=== PATIENT | female | born 1945 | race Caucasian/White ===

== ENCOUNTER → 2017-10-10 | Outpatient (CLI) | payer MEDICARE ==
[~2017-10-10] MED LIST: APIX2.5T PO; CLON0.5T12 PO; CLON1TAB5 PO; DOCU240C25 PO; ESCI20TA36 PO; PROG100C6 PO; PROM12.510 PO; THYR90TA PO; TRAM50TA4 PO; TRIA1TAB3 PO; TYL3 PO
== END | disposition home or self-care (01) ==
LOC: RAH 08:40
PROVIDERS: ATTEND Nurse Practitioner Family
DX: M48.061 Spinal stenosis, lumbar region without neurogenic claudication (principal); N95.1 Menopausal and female climacteric states; E87.6 Hypokalemia; E03.4 Atrophy of thyroid (acquired); E78.2 Mixed hyperlipidemia; I95.89 Other hypotension
CPT/HCPCS: 72148

== ENCOUNTER → 2017-12-25 | Outpatient (CLI) | payer MEDICARE | END | disposition home or self-care (01) | LOC: OIH 11:03 | PROVIDERS: ATTEND Internal Medicine | DX: E78.5 Hyperlipidemia, unspecified (principal); I10 Essential (primary) hypertension; E03.9 Hypothyroidism, unspecified; Z90.49 Acquired absence of other specified parts of digestive tract; K21.9 Gastro-esophageal reflux disease without esophagitis; Z90.710 Acquired absence of both cervix and uterus | CPT/HCPCS: 71046 ==

== ENCOUNTER → 2018-03-30 | Outpatient (CLI) | payer MEDICARE ==
[~2018-03-30] MED LIST changes: +CLON1TAB12 PO; -CLON1TAB5 PO
== END | disposition home or self-care (01) ==
LOC: OIH 09:59
PROVIDERS: ATTEND Internal Medicine
DX: I10 Essential (primary) hypertension (principal)
CPT/HCPCS: 71046

== ENCOUNTER 2018-10-04 12:25 | Inpatient (IN) | payer MEDICARE | END 2018-10-06 20:44 | disposition home or self-care (01) | LOC: EDH 12:25 → EDHIP 17:43 → 3CH 21:31 | DX: K56.609 Unspecified intestinal obstruction, unspecified as to partial versus complete obstruction (principal); I10 Essential (primary) hypertension; E78.5 Hyperlipidemia, unspecified; F41.9 Anxiety disorder, unspecified; F32.9 Major depressive disorder, single episode, unspecified ==

== ENCOUNTER → 2019-01-14 | Outpatient (CLI) | payer MEDICARE ==
[~2019-01-14] MED LIST changes: -APIX2.5T PO; -CLON1TAB12 PO; -DOCU240C25 PO; +NAPR-1023 PO; +PROG100C11 PO; -PROG100C6 PO; -PROM12.510 PO; +PROM12.513 PO; +PRUNELAX PO; +SIMV10TA6 PO; +THYR120T2 PO; -THYR90TA PO; -TYL3 PO
== END | disposition home or self-care (01) ==
LOC: SLP 20:18
PROVIDERS: ATTEND Internal Medicine
DX: G47.33 Obstructive sleep apnea (adult) (pediatric) (principal)
CPT/HCPCS: 95810

== ENCOUNTER → 2019-01-16 | Outpatient (CLI) | payer MEDICARE | END | disposition home or self-care (01) | LOC: SLP 15:27 | PROVIDERS: ATTEND Internal Medicine | DX: G47.33 Obstructive sleep apnea (adult) (pediatric) (principal) | CPT/HCPCS: 95811 ==

== ENCOUNTER 2021-03-04 08:55 | Emergency (ER) | payer MEDICARE ==
[~2021-03-04] VITALS: Ht 167.6 cm; Wt 76.7 kg
[~2021-03-04 08:55] MED LIST changes: -CLON0.5T12 PO; +CLON0.5T4 PO; -ESCI20TA36 PO; +ESCI20TA38 PO; -SIMV10TA6 PO; +SIMV10TA97 PO
[2021-03-04] MEDS ORDERED: ONDANSETRON 4MG INJ IVP ONE (09:00)
[2021-03-04] MEDS ORDERED: PANTOPRAZOLE 40 MG/VIAL IVP ONE (09:00)
[2021-03-04] MEDS ORDERED: ACETAMINOPHEN 325 MG TAB PO ONE (09:00)
[2021-03-04] MEDS ORDERED: DICYCLOMINE 20MG (10MG/ML) AMP IM ONE (09:00)
[2021-03-04] MEDS ORDERED: LACTATED RINGERS 1000ML 1,000 ML IV ONE (09:00)
[2021-03-04 09:30] LABS: BASOPHILS % (AUTO) 0.1 % (0.0-5.0); EOSINOPHILS % (AUTO) 0.8 % (0.0-8.0); HEMATOCRIT 42.7 % (36-48); MEAN CORPUSCULAR VOLUME 87.7 fL (79-99); MONOCYTES % (AUTO) 6.7 % (3.0-13.0); PLATELET COUNT (AUTO) 227 K/uL (130-400); RED BLOOD CELL COUNT(AUTO) 4.87 MIL/uL (4.00-5.50); RED CELL DISTRIBUTION WIDTH 13.2 % (11.0-15.5); WHITE BLOOD COUNT (AUTO) 7.9 K/uL (4.8-10.8)
[2021-03-04 09:40] LABS: CREATININE 1.2 mg/dL (0.5-1.5); POTASSIUM 3.9 mmol/L (3.5-5.1)
[2021-03-04 09:44] LABS: ALBUMIN 4.2 g/dL (3.5-5.0); BILIRUBIN,TOTAL 0.3 mg/dL (0.2-1.0); TOTAL PROTEIN, SERUM 7.3 g/dL (6.0-8.3)
[2021-03-04] MEDS ORDERED: DICY10 PO (12:53)
[2021-03-04] MEDS ORDERED: FAMO20TA8 PO (12:53)
[2021-03-04 13:39] VITALS: BP 133/64
== END 2021-03-04 14:06 | disposition home or self-care (01) ==
LOC: EDH 08:55
DX: A08.4 Viral intestinal infection, unspecified (principal); Z88.5 Allergy status to narcotic agent; Z79.1 Long term (current) use of non-steroidal anti-inflammatories (NSAID); Z79.899 Other long term (current) drug therapy
CPT/HCPCS: 36415; 80053; 82270; 82550; 83690; 84484; 85025; 87507; 96361; 96372; 96374; 96375; 99284; C9113; J0500; J2405; J7030

== ENCOUNTER 2024-06-17 11:40 | Emergency (ER) | payer MEDICARE ==
[~2024-06-17] VITALS: Ht 167.6 cm; Wt 69.4 kg
[~2024-06-17 11:40] MED LIST changes: +DICY10 PO; +FAMO20TA8 PO; -NAPR-1023 PO; +NAPR-1194 PO
--- NOTE | 2024-06-17 11:44 | ERN ---
General Chief Complaint: Nausea,Vomiting,Diarrhea Stated Complaint: NAUSEA, VOMITING AND DIARRHEA Time Seen by MD: 11:41 History of Present Illness Initial Comments 79-year-old female brought in by EMS from residents for nausea or vomiting diarrhea and dizziness. Patient reports for the last night she had multiple episodes of watery diarrhea. This morning she woke up and had multiple episodes of non biliary, nonbloody vomiting. She reports feeling very weak especially when she stands. She reports a dry mouth. She denies any cough or congestion. She does report some rhinorrhea. She reports he was has a history of a bowel obstruction in the past and this does not feel like a bowel obstruction. She denies any other medical conditions. EMS brought the patient and with stable vital signs. PCP is Dr. Matias Allergies: Coded Allergies: codeine (Verified Adverse Reaction, Unknown, RASH, 01/07/19) PT ALSO EXP. DIFFICULTY BREAHTING Home Meds Active Scripts Ondansetron (Ondansetron Odt) 4 Mg Tab.rapdis, 1 TAB PO Q6HPRN PRN for nausea/vomiting for 3 Days, #10 TAB 0 Refills Prov:KELECHI JARAMILLO DO 06/17/24 Dicyclomine HCl (Bentyl) 10 Mg Cap, 10 MG PO BID, #15 CAP Prov:SADIA LMAA MD 03/04/21 Famotidine (Famotidine) 20 Mg Tablet, 20 MG PO BID, #60 TAB Prov:SADIA LAMA MD 03/04/21 Reported Medications [Prunelax] No Conflict Check, 2 TAB PO DAILY PRN for CONSTIPATION 10/06/18 Clonazepam (Clonazepam) 0.5 Mg Tablet, 0.5 MG PO BID PRN for ANXIETY/AGITATION, TAB 10/06/18 Naproxen (Naproxen) 500 Mg Tablet, 500 MG PO BID PRN for PAIN LEVEL 1 TO 5, TAB 10/06/18 Simvastatin (Simvastatin) 10 Mg Tablet, 10 MG PO HS, TAB 10/06/18 Escitalopram Oxalate (Escitalopram Oxalate) 20 Mg Tablet, 20 MG PO HS, TAB 10/06/18 Thyroid,Pork ([place] Thyroid) 120 Mg Tablet, 120 MG PO 0630, TAB 10/06/18 Tramadol Hcl (Tramadol HCl) 50 Mg Tablet, 50 MG PO Q4HPRN PRN for PAIN LEVEL 2 TO 5, TAB 05/31/16 Promethazine HCl (Promethazine HCl) 12.5 Mg Tablet, 12.5 MG PO HS, TAB 03/27/16 Triamterene/Hydrochlorothiazid (Triamterene-Hctz 37.5-25 mg Tb) 1 Each Tablet, 1 EACH PO DAILY, TAB 03/27/16 Progesterone,Micronized (Progesterone) 100 Mg Capsule, 100 MG PO HS, CAP 03/27/16 Past Medical History Past Medical History: Other Medical History Other: MENNEIRE'S DISEASE Surgical History Other: HERNIA REPORT ROS Dictation CONSTITUTIONAL: No chills, no fever, no weakness, no diaphoresis, no malaise. HEAD/FACE: No signs of trauma. EENT: No eye pain, no blurred vision, no tearing, no double vision, no ear pain, no ear discharge, no nose pain, no nasal congestion, no throat pain, no throat swelling, no mouth pain. RESPIRATORY: No cough, no orthopnea, no SOB, no stridor, no wheezing. CARDIOVASCULAR: No chest pain, no edema, no palpitations, no syncope. GASTROINTESTINAL/ABDOMINAL: Abdominal pain vomiting diarrhea GENITOURINARY: No abnormal discharge, no dysuria, no frequent urination, no hematuria. No complaints of pain in the genitals. MUSCULOSKELETAL: No back pain, no gout, no joint pain, no joint swelling, no muscle pain, no muscle stiffness, no neck pain. INTEGUMENTARY: No change in color, no change in hair/nails, no dryness, no lesion, no lumps, no rash. NEUROLOGICAL/PSYCH: No anxiety, not depressed, no emotional problem, no headache, no numbness, no pre-existing deficit, no history of seizures, no tremors, no weakness. HEMATOLOGIC/LYMPHATIC: Not anemic, no history of blood clots, no apparent bleeding, no bruising, glands not swollen. All Systems Negative, Except as Noted. Physical Exam Physical Exam Dictation VITAL SIGNS: Reviewed. GENERAL APPEARANCE: Alert, oriented x3, no acute distress, HEAD AND FACE: Non-traumatic. EYES: PERRL, pink conjunctivas, eyelid no trauma, anterior chamber clear. EARS: Pinnas intact and no signs of trauma or erythema. Ear canals clear and no discharge. TMs no erythema. NOSE: No discharge, no bleeding. OROPHARYNX: Mouth normal, teeth no caries, tongue pink. Pharynx clear, no erythema. Tonsils no exudates, no abscesses noted. Mucous membrane moist. NECK: Supple, non-tender, no thyromegaly, no masses, no JVD, no bruits. BREAST: Deferred. CHEST: No tenderness, no crepitus, no paradoxical movement, no retractions. LUNGS: Clear, well-ventilated, symmetric, no rales, no wheezing, no rhonchi, no stridor, good breath sounds bilaterally. HEART: Regular rate, regular rhythm, no murmur, no gallops. VASCULAR: No peripheral edema. ABDOMEN: Soft, positive bowel sounds, nondistended, no guarding, nontender, no rebound, no masses no hepatomegaly, no splenomegaly, no Gould's sign, no hernias. RECTAL: Deferred. GENITAL: Deferred. NEUROLOGICAL: Normal speech, gross motor function intact, gross sensory function intact. MUSCULOSKELETAL: Neck nontender, full range of motion, back nontender, full range of motion. EXTREMITIES: Nontender, full range of motion. SKIN: Color pink, dry, no turgor, no rash, no lacerations, no abrasions, no contusions. LYMPHATICS: Deferred. Results Laboratory and Microbiology Lab and Micro Result Laboratory Tests Test 06/17/24 12:20 06/17/24 13:57 White Blood Count 9.0 K/uL (4.8-10.8) Red Blood Count 5.15 MIL/uL (4.00-5.50) Hemoglobin 14.9 g/dL (12.0-16.0) Hematocrit 45.7 % (36-48) Mean Corpuscular Volume 88.7 fL (79-99) Mean Corpuscular Hemoglobin 28.9 pg (27.0-33.0) Mean Corpuscular Hemoglobin Concent 32.6 g/dL (32.0-36.0) Red Cell Distribution Width 12.8 % (11.0-15.5) Platelet Count 230 K/uL (130-400) Mean Platelet Volume 10.0 fL (7.5-10.5) Immature Granulocyte % (Auto) 0.3 % (0-1) Neutrophils (%) (Auto) 92.1 % (40.0-77.0) H Lymphocytes (%) (Auto) 2.9 % (21.0-51.0) L Monocytes (%) (Auto) 4.2 % (3.0-13.0) Eosinophils (%) (Auto) 0.3 % (0.0-8.0) Basophils (%) (Auto) 0.2 % (0.0-5.0) Neutrophils # (Auto) 8.3 K/uL (1.8-7.7) H Lymphocytes # (Auto) 0.3 K/uL (1.0-4.8) L Monocytes # (Auto) 0.4 K/uL (0.1-1.0) Eosinophils # (Auto) 0.03 K/uL (0.00-0.70) Basophils # (Auto) 0.02 K/uL (0.00-0.20) Absolute Immature Granulocyte (auto 0.03 K/uL (0-1) Nucleated Red Blood Cells 0.0 % (0.0-0.19) White Cell Morphology Comment See comments Sodium Level 138 mmol/L (136-145) Potassium Level 4.4 mmol/L (3.5-5.1) Chloride Level 102 mmol/L (101-111) Carbon Dioxide Level 31 mmol/L (21-32) Blood Urea Nitrogen 27 mg/dL (7-18) H Creatinine 1.2 mg/dL (0.5-1.0) H Glomerular Filtration Rate Calc 46 mL/min (>90) Random Glucose 117 mg/dL (70-105) H Total Calcium 9.0 mg/dL (8.5-10.1) Total Creatine Kinase 106 U/L (21-232) # Troponin I High Sensitivity < 4 ng/L (4-50) L Lipase 30 U/L (16-77) Urine Color LIGHT-YELLOW (YELLOW) Urine Appearance CLEAR (CLEAR) Urine pH 5.0 (5.0-8.0) Urine Specific [place] 1.026 (1.001-1.031) Urine Protein NEGATIVE mg/dL (NEGATIVE) Urine Glucose (UA) NEGATIVE mg/dL (NEGATIVE) Urine Ketones NEGATIVE mg/dL (NEGATIVE) Urine Occult Blood NEGATIVE (NEGATIVE) Urine Nitrate NEGATIVE (NEGATIVE) Urine Bilirubin NEGATIVE mg/dL (NEGATIVE) Urine Urobilinogen 0.2 mg/dL (0.2-1.0) Urine Leukocyte Esterase NEGATIVE [place]/uL Urine RBC 2-5 /HPF (0-1) H Urine WBC 2-5 /HPF (0-1) H Urine Squamous Epithelial Cells FEW /HPF (0-2) Urine Bacteria RARE /HPF (None Seen) MDM CC:Nausea and vomiting diarrhea and weakness Historian: Patient Comorbidities: Bowel obstruction, appendectomy, hysterectomy, cholecystectomy Limitations by social determinants of health: None Differential diagnosis: Dehydration, gastroenteritis, bowel obstruction, other. Vital signs: Initially stable, remained stable here in the ER. Labs (independently ordered and interpreted by me ): No leukocytosis, there is a left shift 92% neutrophils, no anemia. Chemistry panel shows stable electrolytes, BUN 27 creatinine 1.2 mildly elevated BUN to creatinine ratio consistent with dehydration. The CK is normal troponin normal lipase normal. Urinalysis is normal CXR (independently ordered and interpreted by me): No cardiomegaly pleural effusion or focal infiltrates. CT abdomen and pelvis with contrast (independently interpreted by me ): There is some small bowel dilation with fluid-filled small bowel loops and colon may be related to enterocolitis. fits clinical picture. No signs of bowel obstruction. Treatment in ED: 1 L of LR, IV Zofran On re-evaluation the patient reports improvement of symptoms. She was no longer feeling dizzy. He is p.o. tolerant. No longer vomiting. I suspect she has mild dehydration due to gastroenteritis. There is no dangerous findings on your workup. Very low suspicion for any surgical pathology, electrolyte abnormality, significant dehydration, or other life threats. At this point in time patient was safe for discharge. We will give a prescription for ondansetron recommend PCP follow up as needed. ED Course Orders Procedure Category Date Status Time Cbc With Differential LAB 06/17/24 Complete 11:42 Troponin I High LAB 06/17/24 Complete Sensitivity 11:42 Urinalysis Profile LAB 06/17/24 Complete 11:42 Ct Abdomen/Pelvis CT 06/17/24 Resulted W/Contrast 11:42 Lactated Ringers PHA 06/17/24 Complete 1000ml (Lactated 12:00 Creatine Kinase, Total LAB 06/17/24 Complete 11:42 Lipase LAB 06/17/24 Complete 11:42 Basic Metabolic Panel LAB 06/17/24 Complete 11:42 Ondansetron 4mg Inj PHA 06/17/24 Complete (Zofran 4mg Inj) 12:00 Urinalysis Profile LAB 06/17/24 Logged 11:41 12 Lead Ekg Tracing- EKG 06/17/24 Complete Technical 11:41 Chest 1vw RAD 06/17/24 Taken 11:41 Iohexol (Omnipaque) PHA 06/17/24 Complete 13:21 Lactated Ringers 500 PHA 06/17/24 In Process Ml (Lactated Ringer 15:30 Current Medications Medications (Trade) Dose Ordered Sig/Remedios Route PRN Reason Start Time Stop Time Status Last Admin Dose Admin Iohexol (Omnipaque) 75 ml STK-MED ONCE IV 06/17/24 13:21 06/17/24 13:21 DC Lactated Ringer's 500 ml @ 0 mls/hr ONCE ONCE IV 06/17/24 15:30 06/17/24 15:31 Lactated Ringer's 1,000 ml @ 0 mls/hr ONCE ONCE IV 06/17/24 12:00 06/17/24 12:01 DC 06/17/24 12:47 Ondansetron HCl (zoFRAN 4MG INJ) 4 mg ONCE ONCE IVP 06/17/24 12:00 06/17/24 12:01 DC 06/17/24 12:45 Vital Signs Date Time Temp Pulse Resp B/P (MAP) Pulse Ox O2 Delivery O2 Flow Rate FiO2 06/17/24 14:02 98.2 80 18 147/72 98 Room Air* 0 21 06/17/24 11:44 98.8 81 12 144/84 98 Nasal Cannula 2.0 DX & DISP Disposition: Discharge Departure Impression: Primary Impression: Viral gastroenteritis Additional Impression: Dehydration Condition: Stable Scripts Ondansetron (Ondansetron Odt) 4 Mg Tab.rapdis 1 TAB PO Q6HPRN PRN for nausea/vomiting for 3 Days, #10 TAB 0 Refills Prov: KELECHI JARAMILLO DO 06/17/24 Additional Instructions: Your symptoms are consistent with a gastroenteritis, which is a viral stomach infection causing vomiting and diarrhea. You also have mild dehydration on your lab work. Your lab work (CBC, BMP, CK, troponin, urinalysis) is unremarkable. The CT scan of your abdomen and pelvis shows gastroenteritis, which is consistent with your symptoms. There are no dangerous or life-threatening findings. Be sure to drink plenty of liquids. An electrolyte solution such as Gatorade or Pedialyte as good choice. Start with the BR a T (bananas, rice, applesauce, toast) diet. Advance her diet slowly as tolerated after that. I have prescribed ondansetron dissolvable tabs. You can take this up to 3 times a day as needed to prevent nausea and vomiting. You can take Tylenol or ibuprofen as needed for abdominal discomfort. These medications are [id number]. Please return to the emergency department if you have any concerning symptoms. Referrals: BRIANNA MATIAS MD (PCP) KELECHI JARAMILLO DO Jun 17, 2024 11:44
--- NOTE | 2024-06-17 12:11 | NUR ---
PT JUST NOW BEING PLACED IN [place] [id number]
[2024-06-17 12:37] LABS: BASOPHILS # (AUTO) 0.02 K/uL (0.00-0.20); BASOPHILS % (AUTO) 0.2 % (0.0-5.0); EOSINOPHILS # (AUTO) 0.03 K/uL (0.00-0.70); EOSINOPHILS % (AUTO) 0.3 % (0.0-8.0); HEMATOCRIT 45.7 % (36-48); IMMATURE GRANULOCYTE ABSOLUTE 0.03 K/uL (0-1); LYMPHOCYTES # (AUTO) 0.3 K/uL (1.0-4.8); LYMPHOCYTES % (AUTO) 2.9 % (21.0-51.0); MEAN CORPUSCULAR HEMOGLOBIN 28.9 pg (27.0-33.0); MEAN CORPUSCULAR HGB CONC 32.6 g/dL (32.0-36.0); MEAN CORPUSCULAR VOLUME 88.7 fL (79-99); MONOCYTES # (AUTO) 0.4 K/uL (0.1-1.0); MONOCYTES % (AUTO) 4.2 % (3.0-13.0); NEUTROPHILS # (AUTO) 8.3 K/uL (1.8-7.7); NEUTROPHILS % (AUTO) 92.1 % (40.0-77.0); PLATELET COUNT (AUTO) 230 K/uL (130-400); RED BLOOD CELL COUNT(AUTO) 5.15 MIL/uL (4.00-5.50); RED CELL DISTRIBUTION WIDTH 12.8 % (11.0-15.5)
[2024-06-17] MEDS: ondanSETRON 4MG INJ IVP ONE (12:45)
[2024-06-17] MEDS: LACTATED RINGERS 1000ML 1,000 ML IV ONE (12:47)
[2024-06-17 12:51] LABS: CREATININE 1.2 mg/dL (0.5-1.0); POTASSIUM 4.4 mmol/L (3.5-5.1)
[2024-06-17] MEDS ORDERED: IOHEXOL-350 75 ML VIAL IV ONE (13:21)
--- NOTE | 2024-06-17 13:30 | EKG ---
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
--- NOTE | 2024-06-17 14:04 | HMCIMG ---
CT ABDOMEN/PELVIS W/CONTRAST HISTORY: Abdominal pain COMPARISON: 10/04/2018 TECHNIQUE: Multiple sequential axial images of the abdomen and pelvis were obtained from the dome of the diaphragm through symphysis pubis. Patient was not given contrast through intravenous route. Oral contrast was not given. FINDINGS: No pleural effusion is seen bilaterally. There is no evidence of parenchymal disease or pulmonary nodule of the visualized lower lungs. Degenerative changes of the thoracolumbar spine are present. The heart is not enlarged. Postcholecystectomy changes are seen. Liver measures 18 cm. There is small bowel dilatation with fluid-filled small bowel loops and colon may be related to enterocolitis. The liver, spleen, adrenal glands and pancreas are unremarkable. There is no evidence of hydronephrosis bilaterally. No evidence of renal stone is seen. Fecal material is seen in the colon. There are normal size retroperitoneal and mesenteric lymph nodes. No ascites is seen. Atherosclerotic changes are present. Pelvic sidewalls are symmetric bilaterally. Bladder is moderately distended without wall thickening. IMPRESSION: 1. There is small bowel dilatation with fluid-filled small bowel loops and colon may be related to enterocolitis. The CT was performed with one or more following dose reduction techniques: automated exposure control, adjustment of the mA and kv according to patient's size, or use of a iterative reconstruction technique.
[2024-06-17 14:17] LABS: APPEARANCE,URINE CLEAR (CLEAR); BILIRUBIN,URINE NEGATIVE (NEGATIVE); COLOR,URINE LIGHT-YELLOW (YELLOW); GLUCOSE, URINE (UA) NEGATIVE (NEGATIVE); KETONES,URINE NEGATIVE (NEGATIVE); LEUKOCYTE ESTERASE ,URINE NEGATIVE Leu/uL (NEGATIVE); NITRATE,URINE NEGATIVE (NEGATIVE); OCCULT BLOOD,URINE NEGATIVE (NEGATIVE); PROTEIN,URINE NEGATIVE (NEGATIVE); UROBILINOGEN,URINE 0.2 mg/dL (0.2-1.0)
[2024-06-17 14:18] LABS: ADD UA MICROSCOPIC YES
[2024-06-17 14:20] LABS: BACTERIA,URINE RARE /HPF (None Seen); MUCUS,URINE RARE LPF (None Seen); SQUAMOUS EPITHELIAL CELL,UR FEW /HPF (0-2)
[2024-06-17] MEDS ORDERED: ONDA-243 PO (15:04)
[2024-06-17] MEDS: LACTATED RINGERS 500 ML 500 ML IV ONE (15:33)
[2024-06-17 16:31] VITALS: BP 133/73; PULSE 80; RESP 18; TEMP 98.2; O2SAT 98
--- NOTE | 2024-06-18 14:02 | HMCIMG ---
PORTABLE CHEST RADIOGRAPH INDICATION: N/V/D COMPARISON: 03/20/2018 FINDINGS: websphere process server developer leads overlie the field of view. Heart size is normal. Mild calcific plaque is present along the aortic arch blandon. The pulmonary vascularity and rivka appear normal. 2.4 cm nodule projecting over the right upper lung. No significant pleural effusion noted. No pneumothorax detected. IMPRESSION: 2.4 cm right upper lung nodule.
== END 2024-06-17 16:32 | disposition home or self-care (01) ==
LOC: EDH 11:40
DX: A08.4 Viral intestinal infection, unspecified (principal); E86.0 Dehydration; Z79.890 Hormone replacement therapy; Z79.899 Other long term (current) drug therapy; Z88.5 Allergy status to narcotic agent
CPT/HCPCS: 99285; 74177; 96374; 71045; 96361; 82550; 84484; 80048; 83690; 85025; 81001; 36415; 93005; J7120; J2405; Q9967